=== PATIENT | female | born 1985 | race African-American/Black ===

== ENCOUNTER 2018-05-03 05:02 | Emergency (ER) | payer BC, OTHER ==
[~2018-05-03] VITALS: Ht 167.6 cm; Wt 90.7 kg
[~2018-05-03 05:02] MED LIST: ACET-819 PO; ACET650S13 PO; ACYC800T PO; ASPI1TAB PO; CEPH500C PO; CLC500CT PO; FAMO-106 PO; FROV2.5T3 PO; HYDR-3583 PO; HYDR1TAB PO; IBP600T1 PO; ONDA4TAB11 PO; ONDN4T PO; ORTHO-CYCLEN; PHEN-566 PO; PNV91TAB3 PO; PREN1TAB39 PO; TRM50T PO
[2018-05-03] MEDS ORDERED: NS IV 1000 ML 1,000 ML IV SCH (05:15)
[2018-05-03] MEDS ORDERED: ONDANSETRON 4 MG/2 ML (SDV) Z0FRAN IVP ONE (05:15)
[2018-05-03] MEDS ORDERED: KETOROLAC 30 MG/ML VIAL IVP ONE (05:15)
--- NOTE | 2018-05-03 05:21 | ED Abdominal Pain ---
General Stated Complaint: ABD PAIN Source of Information: Patient Exam Limitations: No Limitations (ANDIE HOOKER) History of Present Illness Date Seen by Provider: May 03, 2018 Time Seen by Provider: 05:06 Initial Comments The patient presents to ER by private conveyance with chief complaint she's having some abdominal pain and cramping sensation as well as some bloody mucus discharge from her rectum. She says she tried to give herself an enema of about a half cup of water and a little less than a quarter Of hydrogen peroxide to clean herself out for her partner. They started to have anal receptive sex and she says she started having quite a bit of pain and said it made him stop. She says almost immediately after taking the enema she started having since loading feeling and pain. She's had nausea with some minimal vomitus. She's had rectal sex in the past. She states that she called poison control and they recommended she come here. Poison control called us and recommended labs and plain film looking for possible ruptured due to gas production. They said he did about 10 cc of oxygen production off of a single milliliter of hydrogen peroxide. Patient reports she is on the last day of her 5 day.. She does not take control. She used to be on a diabetic medicine for her type 2 diabetes she was diagnosed in 2016 with but she has controlled it with diet and exercise and weight loss and her last blood sugar she checked was 2 hours after a meal 124 on Monday. She has not have any medical allergies. She does smoke occasionally drinks with her last drink being around 11:00 last night. She has not taken anything for the pain Tylenol or Motrin etc. (ANDIE HOOKER) Allergies and Home Medications Allergies Coded Allergies: No Known Drug Allergies (Unverified , 10/01/09) Home Medications Cephalexin 500 Mg Capsule, 500 MG PO TID Prescribed by: BOBBI GARNICA on 05/19/15 1340 Ondansetron 4 Mg Tab.rapdis, 4 MG PO Q6H PRN for NAUSEA/VOMITING Prescribed by: BOBBI GARNICA on 05/19/15 1340 Pnv95/Ferrous Fumarate/FA 1 Each Tablet, 1 EACH PO DAILY, (Reported) Patient Home Medication List Home Medication List Reviewed: Yes (ANDIE HOOKER) Review of Systems Review of Systems Constitutional: No chills, No fever, No malaise EENTM: No Blurred Vision, No Double Vision Respiratory: Denies Cough, Denies Shortness of Air Cardiovascular: Denies Chest Pain, Denies Edema Gastrointestinal: See HPI, Abdomen Distended, Abdominal Pain; Denies Constipated, Denies Diarrhea; Nausea, Rectal Bleeding, Vomiting Genitourinary: Denies Burning, Denies Discharge Musculoskeletal: No back pain, No joint pain Skin: No pruritus, No rash (ANDIE HOOKER) Past Xizldet-Bpisbq-Nfsvbe Hx Patient Social History Alcohol Use: Denies Use Recreational Drug Use: No Smoking Status: Never a Smoker Recent Foreign Travel: No Contact w/Someone Who Travel: No (ANDIE HOOKER) Seasonal Allergies Seasonal Allergies: No (ANDIE HOOKER) Past Medical History Reproductive Disorders: No (ANDIE HOOKER) Family Medical History No Pertinent Family Hx (ANDIE HOOKER) Physical Exam Vital Signs Vital Signs - First Documented 05/03/18 05:34 Temp 98.0 Pulse 108 Resp 18 B/P (MAP) 142/72 (95) Pulse Ox 98 O2 Delivery Room Air (LIZZETTE GARNETT MD) Vital Signs Capillary Refill : (ANDIE HOOKER) Height/Weight/BMI Height: 5'3" Weight: 160lbs. oz. 72.425883ui; 28.34 BMI Method:Stated General Appearance: WD/WN, mild distress HEENT: PERRL/EOMI, pharynx normal Neck: supple, normal inspection Respiratory: lungs clear, normal breath sounds, no respiratory distress, no accessory muscle use Cardiovascular: normal peripheral pulses, regular rate, rhythm, no edema Peripheral Pulses: 2+ Dorsalis Pedis (R), 2+ Left Dors-Pedis (L) Gastrointestinal: normal bowel sounds, no organomegaly, distended (Mildly); No rebound; tenderness (diffuse all 4 quadrants) (ANDIE HOOKER) Progress/Results/Core Measures Results/Orders Lab Results Laboratory Tests Test 05/03/18 05:10 Range/Units White Blood Count 9.9 4.3-11.0 10^3/uL Red Blood Count 4.37 4.35-5.85 10^6/uL Hemoglobin 13.3 11.5-16.0 G/DL Hematocrit 40 35-52 % Mean Corpuscular Volume 91 80-99 FL Mean Corpuscular Hemoglobin 30 25-34 PG Mean Corpuscular Hemoglobin Concent 34 32-36 G/DL Red Cell Distribution Width 12.8 10.0-14.5 % Platelet Count 260 130-400 10^3/uL Mean Platelet Volume 10.1 7.4-10.4 FL Neutrophils (%) (Auto) 67 42-75 % Lymphocytes (%) (Auto) 26 12-44 % Monocytes (%) (Auto) 6 0-12 % Eosinophils (%) (Auto) 1 0-10 % Basophils (%) (Auto) 0 0-10 % Neutrophils # (Auto) 6.6 1.8-7.8 X 10^3 Lymphocytes # (Auto) 2.6 1.0-4.0 X 10^3 Monocytes # (Auto) 0.6 0.0-1.0 X 10^3 Eosinophils # (Auto) 0.1 0.0-0.3 10^3/uL Basophils # (Auto) 0.0 0.0-0.1 10^3/uL Sodium Level 138 135-145 MMOL/L Potassium Level 3.9 3.6-5.0 MMOL/L Chloride Level 108 H 98-107 MMOL/L Carbon Dioxide Level 21 21-32 MMOL/L Anion Gap 9 5-14 MMOL/L Blood Urea Nitrogen 15 7-18 MG/DL Creatinine 0.73 0.60-1.30 MG/DL Estimat Glomerular Filtration Rate > 60 BUN/Creatinine Ratio 21 Glucose Level 141 H 70-105 MG/DL Calcium Level 9.1 8.5-10.1 MG/DL Corrected Calcium 9.1 8.5-10.1 MG/DL Total Bilirubin 0.2 0.1-1.0 MG/DL Aspartate Amino Transf (AST/SGOT) 14 5-34 U/L Alanine Aminotransferase (ALT/SGPT) 17 0-55 U/L Alkaline Phosphatase 63 40-136 U/L Total Protein 7.4 6.4-8.2 GM/DL Albumin 4.0 3.2-4.5 GM/DL Serum Alcohol < 10 <10 MG/DL (LIZZETTE GARNETT MD) Medications Given in ED Current Medications Medications Dose Ordered Sig/Arleen Route Start Time Stop Time Status Last Admin Dose Admin Ketorolac Tromethamine 30 mg ONCE ONCE IVP 05/03/18 05:15 05/03/18 05:20 DC 05/03/18 05:32 30 MG Ondansetron HCl 4 mg ONCE ONCE IVP 05/03/18 05:15 05/03/18 05:20 DC 05/03/18 05:33 4 MG (LIZZETTE GARNETT MD) Vital Signs/I&O 05/03/18 05:34 Temp 98.0 Pulse 108 Resp 18 B/P (MAP) 142/72 (95) Pulse Ox 98 O2 Delivery Room Air (LIZZETTE GARNETT MD) Progress Progress Note : Time: 05:27 Progress Note Basic labs and urinalysis to include an hCG. We'll get a plain film of the abdomen upright and decubitus looking for free air. Toradol and Zofran for her symptoms to start. Discussed case with poison control may recommend plain films looking for perforation. Pain Management and observation until the patient's symptoms are improving. (ANDIE HOOKER) Diagnostic Imaging Diagonstic Imaging: Xray Plain Films/CT/US/NM/MRI: abdomen, pelvis (KUB decubitus and upright) Reviewed: Reviewed by Me (ANDIE HOOKER) Transfer of Care Time: 06:07 Care transferred to: Dr Garnett (ANDIE HOOKER) Departure Communication (Admissions) KUB is unremarkable Patient care was assumed at shift change from Dr. HOOKER at shift change. Mechanisms were explained to the patient. She is to be discharged on a clear liquid diet (LIZZETTE GARNETT MD) Impression Primary Impression: rectal mucosal chemical injury Disposition: HOME, SELF-CARE Condition: Stable/Unchanged Departure-Patient Inst. Decision time for Depature: 06:49 (LIZZETTE GARNETT MD) Referrals: NO,LOCAL PHYSICIAN (PCP/Family) Primary Care Physician Add. Discharge Instructions: Clear liquid diet until discomfort resolved ANDIE HOOKER May 03, 2018 05:21 LIZZETTE GARNETT MD May 03, 2018 06:50
[2018-05-03 05:25] LABS: BASOPHILS % (AUTO) 0 % (0-10); EOSINOPHILS # (AUTO) 0.1 10^3/uL (0.0-0.3); EOSINOPHILS % (AUTO) 1 % (0-10); HEMATOCRIT 40 % (35-52); HEMOGLOBIN 13.3 G/DL (11.5-16.0); LYMPHOCYTES # (AUTO) 2.6 X 10^3 (1.0-4.0); LYMPHOCYTES % (AUTO) 26 % (12-44); MEAN CORPUSCULAR HEMOGLOBIN 30 PG (25-34); MEAN CORPUSCULAR HGB CONC 34 G/DL (32-36); MEAN CORPUSCULAR VOLUME 91 FL (80-99); MEAN PLATELET VOLUME 10.1 FL (7.4-10.4); MONOCYTES # (AUTO) 0.6 X 10^3 (0.0-1.0); MONOCYTES % (AUTO) 6 % (0-12); NEUTROPHILS # (AUTO) 6.6 X 10^3 (1.8-7.8); NEUTROPHILS % (AUTO) 67 % (42-75); PLATELET COUNT 260 10^3/uL (130-400); RED CELL DISTRIBUTION WIDTH 12.8 % (10.0-14.5); WHITE BLOOD COUNT 9.9 10^3/uL (4.3-11.0)
[2018-05-03 05:37] LABS: ALANINE AMINOTRANSFERASE 17 U/L (0-55); ALKALINE PHOSPHATASE 63 U/L (40-136); BILIRUBIN,TOTAL 0.2 MG/DL (0.1-1.0); BUN/CREATININE RATIO 21; CALCIUM 9.1 MG/DL (8.5-10.1); CARBON DIOXIDE 21 MMOL/L (21-32); CHLORIDE 108 MMOL/L (98-107); CREATININE SERUM 0.73 MG/DL (0.60-1.30); GFR ESTIMATED > 60; GLUCOSE 141 MG/DL (70-105); POTASSIUM 3.9 MMOL/L (3.6-5.0); SODIUM 138 MMOL/L (135-145); TOTAL PROTEIN 7.4 GM/DL (6.4-8.2)
--- NOTE | 2018-05-03 06:08 | Diagnostic Imaging Report ---
INDICATION: Rectal pain. FINDINGS: Supine upright abdominal images were obtained. Lung bases are clear. There is no intraperitoneal free air. Bowel gas pattern is normal. There is some calcified phleboliths in the pelvis. IMPRESSION: No acute abnormalities in the abdomen. Dictated by: Dictated on workstation # [id number]
--- NOTE | 2018-05-03 06:14 | NUR ---
pt verbalized feeling better. pt denies feeling need to urinate at this time. IVF infusing
[2018-05-03 07:01] VITALS: BP 142/72
== END 2018-05-03 07:02 | disposition home or self-care (01) ==
LOC: EDUNIT# 05:02 → ER 05:04
DX: T28.7XXA Corrosion of other parts of alimentary tract, initial encounter (principal)
CPT/HCPCS: 36415; 74019; 80053; 80320; 85025

== ENCOUNTER → 2021-06-25 | Outpatient (CLI) | payer OTHER ==
--- NOTE | 2021-06-25 14:41 | Diagnostic Imaging Report ---
INDICATION: Tailbone pain AP and lateral views of the sacrum and coccyx does not show any fracture or dislocation. The patient has an IUD. IMPRESSION: Unremarkable sacrum and coccyx. Dictated by: Dictated on workstation # [id number]
--- NOTE | 2021-06-25 14:43 | Diagnostic Imaging Report ---
INDICATION: Chronic low back pain Lumbar spine AP and lateral views of the lumbar spine show normal vertebral body height and alignment. Disc spaces are normal. IMPRESSION: Negative lumbar spine Dictated by: Dictated on workstation # [id number]
--- NOTE | 2021-06-25 14:44 | Diagnostic Imaging Report ---
INDICATION: Pelvic injury. FINDINGS: AP view of the pelvis shows no fracture or dislocation. Joint spaces are well maintained. Patient has an IUD. IMPRESSION: Unremarkable pelvis. Dictated by: Dictated on workstation # [id number]
== END ==
LOC: RAD 13:55
PROVIDERS: ATTEND Chiropractor
DX: S39.93XA Unspecified injury of pelvis, initial encounter (principal); X58.XXXA Exposure to other specified factors, initial encounter
CPT/HCPCS: 72100; 72170; 72220

== ENCOUNTER 2022-08-08 15:08 | Outpatient (CLI) | payer OTHER ==
[~2022-08-08] VITALS: Ht 157.5 cm; Wt 104.4 kg
[2022-08-09] MEDS ORDERED: ACHD5005 PO (09:09)
[2022-08-09] MEDS ORDERED: AMOX1TAB12 PO (09:09)
== END 2022-08-08 15:51 | disposition home or self-care (01) ==
LOC: PREOP 15:08
PROVIDERS: ATTEND Surgery
DX: Z01.818 Encounter for other preprocedural examination (principal)

== ENCOUNTER 2022-08-09 06:51 | Day surgery (SDC) | payer OTHER ==
[~2022-08-09] VITALS: Ht 157.5 cm; Wt 104.4 kg
[2022-08-09] VITALS (12 sets, daily range): BP systolic 102–136; BP diastolic 55–96
[2022-08-09] MEDS ORDERED: LACTATED RINGERS 1,000 ML IV PRN (07:15)
[2022-08-09] MEDS ORDERED: proPOfol 200 MG/20 ML (DIPRIVAN) VIAL IV ONE (07:26)
[2022-08-09] MEDS ORDERED: LIDOCAINE PF 2% 5 ML (XYLOCAINE) VIAL ONE (07:26)
[2022-08-09] MEDS ORDERED: MIDAZOLAM 2 MG/2 ML (VERSED) VIAL ONE (07:26)
[2022-08-09] MEDS ORDERED: fentaNYL INJ 100 MCG/2 ML AMP ONE (07:26)
[2022-08-09] MEDS ORDERED: ONDANSETRON 4 MG/2 ML (SDV) Z0FRAN ONE (07:26)
[2022-08-09] MEDS ORDERED: SEVOFLURANE (ULTANE) 15 ML INHAL SOLN ONE ×2 (07:26→08:44)
[2022-08-09] MEDS ORDERED: BUP/EPI 0.5% 1:200,000 (SENSORCAINE) 30 ML VIAL ONE (07:27)
[2022-08-09] MEDS ORDERED: ceFAZolin INJECTION 2,000 MG ONE (08:07)
[2022-08-09] MEDS ORDERED: NS (IVPB) 50 ML ONE (08:07)
--- NOTE | 2022-08-09 08:13 | Progress Note-Pre Operative ---
Pre-Operative Progress Note Date H&P Reviewed: August 09, 2022 Time H&P Reviewed: 07:56 History & Physical: H&P Reviewed, Patient Examed, No changes noted Pre-Operative Diagnosis: left buttock abscess NITIN BOWENS DO August 09, 2022 08:13
--- NOTE | 2022-08-09 09:02 | Anesthesia-General Post-Op ---
General Patient Condition Mental Status/LOC: Same as Preop Cardiovascular: Satisfactory Nausea/Vomiting: Absent Respiratory: Satisfactory Pain: Controlled Complications: Absent Post Op Complications Complications None Follow Up Care/Instructions Patient Instructions None needed. Anesthesia/Patient Condition Patient Condition Patient is doing well, no complaints, stable vital signs, no apparent adverse anesthesia problems. No complications reported per nursing. MARLENE VANCE CRNA August 09, 2022 09:02
--- NOTE | 2022-08-09 09:08 | Progress Note-Post Operative ---
Post-Operative Progess Note Surgeon (s)/Airport Operations Duty Manager (s) Surgeon NITIN BOWENS DO Airport Operations Duty Manager: na Pre-Operative Diagnosis left buttock abscess Post-Operative Diagnosis same Procedure & Operative Findings Date of Procedure 08/09/22 Procedure Performed/Findings incision and drainage left buttock abscess Anesthesia Type general Estimated Blood Loss Estimated blood loss (mL): minimal Specimens/Packing Specimens Removed culture Packing: kerlex/betadine NITIN BOWENS DO August 09, 2022 09:08
[2022-08-09] MEDS ORDERED: ACHD5005 PO (09:09)
[2022-08-09] MEDS ORDERED: AMOX1TAB12 PO (09:09)
--- NOTE | 2022-08-09 09:11 | Discharge Inst-Simple/Standard ---
Discharge Inst-Standard Discharge Medications New, Converted or Re-Newed RX: Transmitted to Pharmacy Patient Instructions/Follow Up Plan of Care/Instructions/FU: Tomorrow [facility] for dressing change. Needs dresssing change every day and as needed. Jackson 1 week. Activity as Tolerated: No Discharge Diet: Regular Diet Other Inst to Patient Follow up Appt: Make appointment for 1 week. [facility] office tomorrow. Instructions: No lifting greater than 10 pounds. No strenuous activity. May shower in 24 hours, no tub bath or soaking. Use incentive spirometer at home as directed. No Smoking Skin/Wound Care: Dressing change daily and as needed. Symptoms to Report: Appetite Changes, Extremity Discoloration, Numbness/Tingling, Swelling Increased, Bleeding Excessive, Eyesight Changes, Pain Increased, Urine Color Change, Constipation(Persistent), Fever over 101 degree F, Pain/Pressure in chest, Urinating Difficulty, Cough Up/Vomit Blood, Heart Beat Irreg/Pounding, Pain/Pressure in jaw, Vaginal Bleeding Increase, Cramps in feet or legs, Lightheadedness, Pain/Pressure in shoulder, Diarrhea(Persistent), Memory Changes Suddenly, Questions/Concerns, Weight gain consecutive days, Dizziness/Fainting, Nausea/Vomiting, Shortness of Breath, Weight gain over 2 pounds If questions or concerns contact your physician Or seek help at emergency department. NITIN JACKSON DO August 09, 2022 09:11
[2022-08-09] MEDS ORDERED: fentaNYL INJ 100 MCG/2 ML AMP IVP ONE (09:15)
[2022-08-09] MEDS ORDERED: morphine INJ 10 MG/ML 1ML (SYR OR VIAL) IVP ONE (09:15)
[2022-08-09] MEDS ORDERED: MEPERIDINE (DEMEROL) INJ 50 MG/ML IVP ONE (09:15)
[2022-08-09] MEDS ORDERED: ONDANSETRON 4 MG/2 ML (SDV) Z0FRAN IVP PRN (09:15)
[2022-08-09] MEDS ORDERED: HYDROcodone/APAP 5 MG/325 MG (LORTAB) TAB ONE (10:20)
[2022-08-09] MEDS ORDERED: HYDROcodone/APAP 5 MG/325 MG (LORTAB) TAB PO ONE (10:30)
--- NOTE | 2022-08-09 22:56 | OPERATIVE REPORT ---
DATE OF SERVICE: 08/09/2022 PREOPERATIVE DIAGNOSIS: Left buttock abscess. POSTOPERATIVE DIAGNOSIS: Left buttock abscess. PROCEDURE: Incision and drainage of left buttock abscess. SURGEON: Nitin Jackson DO ANESTHESIA: General. ESTIMATED BLOOD LOSS: Minimal. COMPLICATIONS: None. INDICATIONS: The patient is a 37-year-old female with a left buttock abscess. She had drain in the office, but discontinue packing after first initial packing. She followed up for followup yesterday and had worsening of the buttock area and significant tenderness needing to have the area incised and drained further compared to the first time this has significantly worsened. She understands risks and benefits of procedure and wished to proceed. Consent was signed in chart. DESCRIPTION OF PROCEDURE: The patient was taken to the operating room and placed in lithotomy position. Timeout was performed. She was prepped and draped. A #15 blade scalpel was used to make incision over the area of fluctuance and an incision approximately 5 cm in length was made through the skin and subcutaneous tissues. Cautery was used to achieve hemostasis at the skin level. Bone material erupted from this area as well, culture was obtained. All loculations were broken up. Overall, dimension of the cavity was approximately 8 to 10 cm in overall diameter. The wound was then irrigated with copious amounts of irrigation and then packed with Kerlix soaked in Betadine. The patient tolerated the procedure well without complications, taken to recovery room in stable condition. Job ID: [id number] DocumentID: [id number] Dictated Date: 08/09/2022 15:46:06 Lead Accountant Date: 08/09/2022 22:53:00 Dictated By: NITIN JACKSON DO
== END 2022-08-09 11:10 | disposition home or self-care (01) ==
LOC: SDC 06:51
PROVIDERS: ATTEND Surgery
DX: L02.31 Cutaneous abscess of buttock (principal)
CPT/HCPCS: 82947; 84703; 87070; 87075; 87077; 87081; 87186; 87205

== ENCOUNTER 2022-10-13 15:54 | Emergency (ER) | payer OTHER ==
[~2022-10-13] VITALS: Ht 157 cm; Wt 99.7 kg
[~2022-10-13 15:54] MED LIST changes: +ACHD5005 PO; +AMOX1TAB12 PO
[2022-10-13] MEDS ORDERED: LORazepam 0.5 MG (ATIVAN) TABLET PO STA (16:02)
[2022-10-13 16:03] VITALS: BP 142/53
--- NOTE | 2022-10-13 16:05 | ED Upper Extremity ---
General Stated Complaint: LEFT ARM LAC Source: patient Exam Limitations: no limitations History of Present Illness Date Seen by Provider: Oct 13, 2022 Time Seen by Provider: 16:02 Initial Comments Patient is a 37-year-old female presents ED with a laceration to her left forearm. This occurred 20 minutes ago. She states an ax fell off a bracket off the wall. This resulted in a 2 similar laceration with fat involvement of the left mid forearm. Normal active range of motion the wrist. Up-to-date her tetanus. Bleeding controlled direct pressure. Patient is extremely anxious. Pain appears to be superficial. She states the ax did not fall directly on the forearm but more superficial. Denies of any distal numbness and tingling Allergies and Home Medications Allergies Coded Allergies: No Known Drug Allergies (Unverified , 08/08/22) Patient Home Medication List Home Medication List Reviewed: Yes Amoxicillin/Potassium Clav (Amox Tr-K Clv 875-125 mg Tab) 875 Mg-125 Mg Tablet, 1 EACH PO BID Prescribed by: NITIN BOWENS on 08/09/22 0909 Hydrocodone/Acetaminophen (Hydrocodone-Acetamin 5-325 mg) 5 Mg-325 Mg Tablet, 1 EACH PO Q4H PRN for PAIN-MODERATE (5-7) Prescribed by: NITIN BOWENS on 08/09/22 0910 Review of Systems Constitutional: No chills, No diaphoresis, No malaise, No weakness EENTM: No ear pain, No blurred vision, No double vision Respiratory: No cough, No dyspnea on exertion Cardiovascular: No chest pain Gastrointestinal: No abdominal pain, No diarrhea, No vomiting Genitourinary: No decreased output, No discharge Musculoskeletal: No back pain, No joint pain Skin: change in color All Other Systems Reviewed Negative Unless Noted: Yes Past Yajxgvy-Cjnghv-Iuloqg Hx Immunizations Up To Date First/Initial COVID19 Vaccinat: X1 Second COVID19 Vaccination Yohan: X2 Third COVID19 Vaccination Date: X3X4 Seasonal Allergies Seasonal Allergies: No Past Medical History Surgeries: Yes (ORAL) Respiratory: No Currently Using CPAP: No Currently Using BIPAP: No 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 oz. 90.362139cy; 42.08 BMI Method:Estimated General Appearance: WD/WN, no apparent distress HEENT: PERRL/EOMI, normal ENT inspection, TMs normal, pharynx normal Neck: non-tender, full range of motion, supple, normal inspection Cardiovascular: regular rate, rhythm, no edema, no gallop, no JVD Respiratory: chest non-tender, lungs clear, normal breath sounds, no respiratory distress, no accessory muscle use Gastrointestinal: normal bowel sounds, non tender, soft, no organomegaly Back: normal inspection, no CVA tenderness, no vertebral tenderness Shoulder: normal inspection Wrist: Yes normal inspection, Yes non-tender, Yes no evidence of injury, Yes normal ROM (Normal active range of motion of the left wrist. Measurement Supervisor strength 5 out of 5 left hand) Hand: normal inspection, non-tender, Left Neurologic/Tendon: normal sensation, normal motor functions, normal tendon functions Neurologic/Psychiatric: punch operator II-XII nml as tested, no motor/sensory deficits, alert, normal mood/affect, oriented x 3 Skin: other (2 cm laceration to left mid lateral forearm. Apposed monitor. No bleeding.) Procedures/Interventions Wound Location: Upper Extremities Other Wound Location left forearm Wound Length (cm): 2 Wound's Depth, Shape: superficial, sub Q Wound Explored: clean Irrigated w/ Saline (ccs): 300 Betadine Prep?: Yes Anesthesia: 1% Lidocaine Volume Anesthetic (ccs): 5 Suture: Ethlion Suture Size: 4-0 Number of Sutures: 6 Layer Closure?: 1 Sterile Dressing Applied?: Yes Progress/Results/Core Measures Results/Orders My Orders Orders - ALYSON ALVARADO Pertuss(Acell),Tet Adult (Boostrix (10/13/22 16:15) Lidocaine 1% Inj 20 Ml (Xylocaine 1% Inj (10/13/22 16:15) Lorazepam Tablet (Ativan Tablet) (10/13/22 16:02) Lidocaine 1% Inj 10 Ml (Xylocaine 1% Inj (10/13/22 16:47) Vital Signs/I&O 10/13/22 16:03 Temp 36.3 Pulse 78 Resp 16 B/P (MAP) 142/53 (82) Pulse Ox 99 O2 Delivery Room Air Departure Communication (PCP) Differential diagnoses forearm injury, forearm laceration. Patient with a 2cm laceration to her left dorsum forearm. No vascular involvement. She states a ax fell off the wall causing a laceration. She denies direct impact and more superficial cut. Adipose involvement. Patient without any radius or ulnar tenderness. Normal active range of motion of the left wrist and fingers. No obvious muscular or tendon vomit. Neurovascular intact. Imaging was held. Updated her tetanus. Six 4-0 Ethilon sutures were placed here in the ED. Remove stiches in 10 days. Topical Neosporin twice a day. Discussed wound care. If increased redness or swelling to return back to ED. Return precaution were discussed with patient Impression Primary Impression: Laceration Disposition: 01 HOME, SELF-CARE Condition: Stable Departure-Patient Inst. Decision time for Depature: 17:10 Referrals: MILVIA MEJÍA DO (PCP/Family) Primary Care Physician Patient Instructions: Laceration Repair With Stitches ED Add. Discharge Instructions: Remove stitches in 10 days. Topical Neosporin twice a day. Ice to help with swelling. Anti-inflammatories for pain. If increased redness or swelling to return back to ED. Work/School Note: Work Release Form Date Seen in the Emergency Department: Oct 13, 2022 Return to Work: Oct 16, 2022 Other Restrictions Listed Below: Limit heavy lifting greater than 10 pounds of left arm for 7 days ALYSON ALVARADO Oct 13, 2022 16:05
[2022-10-13] MEDS ORDERED: TETANUS,DIPTH,PERTUSS P/F (BOOSTRIX) 0.5 ML VIAL IM ONE (16:15)
[2022-10-13] MEDS ORDERED: LIDOCAINE 1% INJ 20 ML VIAL INJ ONE (16:15)
[2022-10-13] MEDS ORDERED: LIDOCAINE 1% INJ 10 ML VIAL ONE (16:47)
[2022-10-13] MEDS ORDERED: LIDOCAINE 1% INJ 10 ML VIAL INJ ONE (17:30)
== END 2022-10-13 17:20 | disposition home or self-care (01) ==
LOC: EDUNIT# 15:54 → ER 15:57
DX: S51.812A Laceration without foreign body of left forearm, initial encounter (principal); Z23 Encounter for immunization; W27.0XXA Contact with workbench tool, initial encounter
CPT/HCPCS: 90471; 90715; 99284

== ENCOUNTER 2022-10-25 13:28 | Emergency (ER) | payer OTHER ==
[2022-10-25 13:30] VITALS: BP 135/70
== END 2022-10-25 13:49 | disposition home or self-care (01) ==
LOC: EDUNIT# 13:28 → ER 13:29
DX: Z48.02 Encounter for removal of sutures (principal); Z28.310 Unvaccinated for COVID-19